=== PATIENT | female | born 1975 | race African-American/Black ===

== ENCOUNTER 2023-07-29 03:49 | Emergency (ER) | payer SELFPAY ==
[~2023-07-29] VITALS: Ht 162.6 cm; Wt 78.0 kg
[2023-07-29 04:00] VITALS: O2SAT 99
[2023-07-29 04:43] LABS: BASOPHILS % 0.3 % (0.0-2.0); EOSINOPHILS % 2.6 % (0.0-5.0); HEMATOCRIT. 40.7 % (36.0-48.0); HEMOGLOBIN. 13.5 g/dL (12.0-16.0); LYMPHOCYTES % 39.3 % (20.0-50.0); MEAN CORPUSCULAR HEMOGLOBIN 30.7 pg (28.0-32.0); MEAN CORPUSCULAR HGB CONC 33.1 g/dL (31.0-37.0); MEAN CORPUSCULAR VOLUME 92.9 fL (81.0-99.0); MEAN PLATELET VOLUME 8.4 fl (7.4-10.4); MONOCYTES % 6.8 % (2.0-8.0); PLATELET 217 x1000/uL (130-400); RED BLOOD CELL COUNT 4.38 mill/uL (4.2-5.4); RED CELL DISTRIBUTION WIDTH 13.3 % (11.6-14.6); WHITE BLOOD COUNT 6.2 x1000/uL (4.5-11.0)
[2023-07-29 04:56] LABS: INR 0.9; PARTIAL THROMBOPLASTIN TIME 26.7 sec (23.4-31.0); PROTHROMBIN TIME 10.4 sec (9.6-11.0)
[2023-07-29] MEDS: LACTATED RINGERS 1,000 ML IV SCH (04:57)
[2023-07-29] MEDS: ACETAMINOPHEN 325MG TABLET PO ONE (04:57)
[2023-07-29] MEDS: METOCLOPRAMIDE HCL 10MG/2ML VIAL IV ONE (04:57)
[2023-07-29 04:58] LABS: CHLORIDE 106 mEq/L (98-107); POTASSIUM 3.1 mEq/L (3.5-5.1); SODIUM 139 mEq/L (136-145)
[2023-07-29 04:59] LABS: CARBON DIOXIDE 26 mEq/L (21-32)
[2023-07-29 05:04] LABS: CREATININE 0.5 mg/dL (0.6-1.0); GLUCOSE 128 mg/dL (70-105)
[2023-07-29 05:05] LABS: UREA NITROGEN BLOOD 8 mg/dL (9-23)
[2023-07-29 05:34] LABS: TROPONIN I HIGH SENSITIVITY < 4 ng/L (3.0-34)
[2023-07-29 05:44] LABS: HCG SCREEN NEGATIVE
[2023-07-29] MEDS: POTASSIUM CHLORIDE 20MEQ TABLET SR PO ONE (06:26)
[2023-07-29] MEDS: DIPHENHYDRAMINE 50MG/ML VIAL IV ONE (06:27)
[2023-07-29 07:37] VITALS: BP 113/62; PULSE 83; RESP 18; TEMP 98.3
== END 2023-07-29 07:40 | disposition home or self-care (01) ==
LOC: ER 03:49
DX: G43.809 Other migraine, not intractable, without status migrainosus (principal); I10 Essential (primary) hypertension; E87.6 Hypokalemia; Z88.0 Allergy status to penicillin
CPT/HCPCS: 80048; 84703; 85025; 85610; 85730; 84484; 36415; 70450; 93005; 96361; 96374; 99285; J1200; J2765; Z7610 ×3